=== PATIENT | female | born 1935 | race Caucasian/White ===

== ENCOUNTER 2018-11-04 12:17 | Inpatient (IN) | payer MEDICARE, OTHER ==
[2018-11-04 13:13] LABS: ADD MAN DIFF? NO
[2018-11-04 13:16] LABS: WHITE BLOOD COUNT 4.3 10^3/ul (4.8-10.8)
[2018-11-04 13:16] LABS: BASOPHILS % 0.9 % (0.0-2.0); EOSINOPHILS # 0.1 10^3/ul (0.0-0.5); EOSINOPHILS % 1.4 % (0.0-7.0); HEMATOCRIT 40.6 % (37.0-47.0); LYMPHOCYTES % 24.2 % (15.0-51.0); MEAN CORPUSCULAR HEMOGLOBIN 30.4 pg (29.0-33.0); MEAN CORPUSCULAR VOLUME 94.9 fl (82.0-101.0); MEAN PLATELET VOLUME 10.5 fl (7.4-10.4); MONOCYTE # 0.6 10^3/ul (0.3-0.9); MONOCYTES % 14.2 % (0.0-11.0); NEUTROPHIL # 2.5 10^3/ul (1.6-7.5); NEUTROPHILS % 59.1 % (39.0-77.0); PLATELET COUNT 178 10^3/UL (140-415); RED BLOOD COUNT 4.28 10^6/ul (4.20-5.40); RED CELL DISTRIBUTION WIDTH 13.3 % (11.5-14.5)
[2018-11-04 13:32] LABS: ANION GAP 7 (5-13); BLOOD UREA NITROGEN 8 mg/dl (7-20); CALCIUM 9.1 mg/dl (8.4-10.2); CARBON DIOXIDE 29 mmol/L (21-31); CHLORIDE 105 mmol/L (97-110); CREATININE 0.62 mg/dl (0.44-1.00); GLUCOSE 80 mg/dl (70-220); POTASSIUM 3.7 mmol/L (3.5-5.1); SODIUM 141 mmol/L (135-144)
[2018-11-04 13:41] LABS: PARTIAL THROMBOPLASTIN TIME 48.1 Sec (23.0-35.0)
[2018-11-04 13:44] LABS: B-TYPE NATRIURETIC PEPTIDE 197 PG/ML (0-450); TROPONIN-I < 0.012 ng/ml (0.000-0.120)
[2018-11-04 13:51] LABS: INR 1.09; PROTIME 14.2 Sec (11.9-14.9); PT RATIO 1.1
[2018-11-04] MEDS: ONDANSETRON 4 MG INJ IV (13:52)
[2018-11-04] MEDS: morphine 4 MG/ML VIAL IV (13:52)
[2018-11-04] MEDS: SOD CHLORIDE 0.9% 1,000 ML IV (13:52)
[2018-11-04] MEDS: SOD CHLORIDE 0.9% 100 ML (14:02)
[2018-11-04] MEDS: IOHEXOL 100 ML (14:02)
[2018-11-04] MEDS: ASPIRIN 81 MG TAB PO (16:27)
[2018-11-04] MEDS ORDERED: ONDANSETRON 4 MG INJ IV (16:30)
[2018-11-04] MEDS ORDERED: ACETAMINOPHEN 325 MG TAB PO ×2 (16:30→17:00)
[2018-11-04] MEDS ORDERED: NACL 0.9% 3 ML SYG IV (17:00)
[2018-11-04] MEDS ORDERED: hydrALAzine 20 MG INJ IV (17:00)
[2018-11-04 17:24] LABS: FREE T4 (FREE THYROXINE) 1.24 ng/dl (0.85-1.93)
[2018-11-04 19:44] LABS: CREATINE KINASE 56 IU/L (23-200)
[2018-11-04 19:55] LABS: CK INDEX 2.2; CK-MB 1.21 ng/ml (0.0-2.4); TROPONIN-I < 0.012 ng/ml (0.000-0.120)
[2018-11-04] MEDS: SACCHAROMYCES BOULARDII 250 MG CAP PO (21:36)
[2018-11-04] MEDS: ATORVASTATIN 10 MG TAB PO (21:36)
[2018-11-05] MEDS: HYDROCODONE/APAP (5/325) TAB PO (01:11)
[2018-11-05 01:15] LABS: CREATINE KINASE 56 IU/L (23-200)
[2018-11-05 01:28] LABS: CK INDEX 2.1; CK-MB 1.19 ng/ml (0.0-2.4); TROPONIN-I < 0.012 ng/ml (0.000-0.120)
[2018-11-05 05:43] LABS: ADD MAN DIFF? NO
[2018-11-05 05:49] LABS: WHITE BLOOD COUNT 2.8 10^3/ul (4.8-10.8)
[2018-11-05 05:49] LABS: BASOPHILS % 1.1 % (0.0-2.0); EOSINOPHILS # 0.1 10^3/ul (0.0-0.5); EOSINOPHILS % 3.9 % (0.0-7.0); HEMATOCRIT 38.9 % (37.0-47.0); LYMPHOCYTES # 0.8 10^3/ul (0.8-2.9); LYMPHOCYTES % 27.3 % (15.0-51.0); MEAN CORPUSCULAR HEMOGLOBIN 29.9 pg (29.0-33.0); MEAN CORPUSCULAR HGB CONC 30.8 g/dl (32.0-37.0); MONOCYTE # 0.7 10^3/ul (0.3-0.9); NEUTROPHIL # 1.3 10^3/ul (1.6-7.5); NEUTROPHILS % 44.3 % (39.0-77.0); PLATELET COUNT 166 10^3/UL (140-415); RED BLOOD COUNT 4.01 10^6/ul (4.20-5.40); RED CELL DISTRIBUTION WIDTH 13.5 % (11.5-14.5)
[2018-11-05 06:06] LABS: CHOL/HDL RATIO 4.9 RATIO; CHOLESTEROL 158 mg/dl (100-200); HDL CHOLESTEROL 32 mg/dl (33-92); LDL CHOLESTEROL,CALCULATED 102 mg/dl; MAGNESIUM 2.1 mg/dl (1.7-2.5); TRIGLYCERIDES 120 mg/dl (0-149)
[2018-11-05 06:06] LABS: PHOSPHORUS 4.4 mg/dl (2.5-4.9)
[2018-11-05 06:08] LABS: ANION GAP 4 (5-13); BLOOD UREA NITROGEN 7 mg/dl (7-20); CALCIUM 8.9 mg/dl (8.4-10.2); CARBON DIOXIDE 31 mmol/L (21-31); CHLORIDE 105 mmol/L (97-110); CREATININE 0.67 mg/dl (0.44-1.00); GLUCOSE 78 mg/dl (70-220); POTASSIUM 4.2 mmol/L (3.5-5.1); SODIUM 140 mmol/L (135-144)
[2018-11-05 06:10] LABS: CREATINE KINASE 51 IU/L (23-200)
[2018-11-05 06:20] LABS: CK INDEX 2.7; TROPONIN-I < 0.012 ng/ml (0.000-0.120)
[2018-11-05 09:42] LABS: HEMOGLOBIN A1C 5.1 % (0-5.9)
[2018-11-05] MEDS: DONEPEZIL 5 MG TAB PO (11:18)
[2018-11-05] MEDS: SACCHAROMYCES BOULARDII 250 MG CAP PO ×2 (11:18→20:51)
[2018-11-05] MEDS: ASPIRIN (EC) 81 MG TAB PO (11:18)
[2018-11-05] MEDS: DILTIAZEM (CD) 120 MG CAP PO (11:18)
[2018-11-05] MEDS: ESCITALOPRAM 10 MG TAB PO (11:19)
[2018-11-05] MEDS: LORATADINE 10 MG TAB PO (11:19)
[2018-11-05] MEDS: NEBIVOLOL 5 MG TAB PO (11:19)
[2018-11-05] MEDS: FUROSEMIDE 20 MG TAB PO (11:21)
[2018-11-05] MEDS ORDERED: BARIUM SULF 2% 450 ML BTL (BERRY SMOOTHIE) PO ×2 (12:00)
[2018-11-05] MEDS: BARIUM SULF 2% 450 ML BTL (BERRY SMOOTHIE) PO (15:05)
[2018-11-05] MEDS: ATORVASTATIN 10 MG TAB PO (20:51)
[2018-11-06 05:34] LABS: ADD MAN DIFF? NO
[2018-11-06 05:57] LABS: BASOPHILS % 1.1 % (0.0-2.0); EOSINOPHILS # 0.1 10^3/ul (0.0-0.5); EOSINOPHILS % 4.1 % (0.0-7.0); HEMATOCRIT 39.9 % (37.0-47.0); HEMOGLOBIN 12.2 g/dl (12.0-16.0); LYMPHOCYTES # 0.9 10^3/ul (0.8-2.9); LYMPHOCYTES % 32.7 % (15.0-51.0); MEAN CORPUSCULAR HEMOGLOBIN 29.9 pg (29.0-33.0); MEAN CORPUSCULAR HGB CONC 30.6 g/dl (32.0-37.0); MEAN CORPUSCULAR VOLUME 97.8 fl (82.0-101.0); MEAN PLATELET VOLUME 11.3 fl (7.4-10.4); MONOCYTE # 0.6 10^3/ul (0.3-0.9); MONOCYTES % 20.8 % (0.0-11.0); NEUTROPHIL # 1.1 10^3/ul (1.6-7.5); NEUTROPHILS % 41.3 % (39.0-77.0); PLATELET COUNT 175 10^3/UL (140-415); RED BLOOD COUNT 4.08 10^6/ul (4.20-5.40); RED CELL DISTRIBUTION WIDTH 13.2 % (11.5-14.5)
[2018-11-06 05:57] LABS: WHITE BLOOD COUNT 2.7 10^3/ul (4.8-10.8)
[2018-11-06 06:10] LABS: MAGNESIUM 2.1 mg/dl (1.7-2.5)
[2018-11-06 06:10] LABS: PHOSPHORUS 3.9 mg/dl (2.5-4.9)
[2018-11-06 06:23] LABS: ANION GAP 3 (5-13); BLOOD UREA NITROGEN 6 mg/dl (7-20); CALCIUM 9.1 mg/dl (8.4-10.2); CARBON DIOXIDE 35 mmol/L (21-31); CHLORIDE 104 mmol/L (97-110); CREATININE 0.69 mg/dl (0.44-1.00); GLUCOSE 86 mg/dl (70-220); POTASSIUM 4.7 mmol/L (3.5-5.1); SODIUM 142 mmol/L (135-144)
[2018-11-06] MEDS: ASPIRIN (EC) 81 MG TAB PO (08:45)
[2018-11-06] MEDS: LORATADINE 10 MG TAB PO (08:45)
[2018-11-06] MEDS: ESCITALOPRAM 10 MG TAB PO (08:45)
[2018-11-06] MEDS: DONEPEZIL 5 MG TAB PO (08:45)
[2018-11-06] MEDS: SACCHAROMYCES BOULARDII 250 MG CAP PO ×2 (08:45→20:19)
[2018-11-06] MEDS: NEBIVOLOL 5 MG TAB PO (08:46)
[2018-11-06] MEDS: DILTIAZEM (CD) 120 MG CAP PO (08:47)
[2018-11-06] MEDS: FUROSEMIDE 20 MG TAB PO (08:47)
[2018-11-06] MEDS: ATORVASTATIN 10 MG TAB PO (20:20)
[2018-11-06] MEDS: HEPARIN 5,000 UNIT/1 ML VIAL SC (21:53)
[2018-11-07 05:37] LABS: ADD MAN DIFF? NO
[2018-11-07 05:46] LABS: WHITE BLOOD COUNT 3.9 10^3/ul (4.8-10.8)
[2018-11-07 05:46] LABS: EOSINOPHILS # 0.1 10^3/ul (0.0-0.5); EOSINOPHILS % 2.3 % (0.0-7.0); HEMATOCRIT 40.9 % (37.0-47.0); HEMOGLOBIN 12.7 g/dl (12.0-16.0); LYMPHOCYTES % 25.8 % (15.0-51.0); MEAN CORPUSCULAR HEMOGLOBIN 29.9 pg (29.0-33.0); MEAN CORPUSCULAR HGB CONC 31.1 g/dl (32.0-37.0); MEAN CORPUSCULAR VOLUME 96.2 fl (82.0-101.0); MEAN PLATELET VOLUME 10.6 fl (7.4-10.4); MONOCYTE # 0.5 10^3/ul (0.3-0.9); MONOCYTES % 13.2 % (0.0-11.0); NEUTROPHIL # 2.2 10^3/ul (1.6-7.5); NEUTROPHILS % 57.2 % (39.0-77.0); PLATELET COUNT 186 10^3/UL (140-415); RED BLOOD COUNT 4.25 10^6/ul (4.20-5.40); RED CELL DISTRIBUTION WIDTH 13.3 % (11.5-14.5)
[2018-11-07 06:10] LABS: ALANINE AMINOTRANSFERASE 52 IU/L (13-69); ALBUMIN 3.6 g/dl (3.3-4.9); ALBUMIN/GLOBULIN RATIO 1.16; ALKALINE PHOSPHATASE 105 IU/L (42-121); ANION GAP 4 (5-13); ASPARTATE AMINO TRANSFERASE 31 IU/L (15-46); BILIRUBIN,INDIRECT 0.4 mg/dl (0-1.1); BILIRUBIN,TOTAL 0.4 mg/dl (0.2-1.3); BLOOD UREA NITROGEN 6 mg/dl (7-20); CALCIUM 9.1 mg/dl (8.4-10.2); CARBON DIOXIDE 35 mmol/L (21-31); CHLORIDE 104 mmol/L (97-110); CREATININE 0.71 mg/dl (0.44-1.00); GLUCOSE 94 mg/dl (70-220); SODIUM 143 mmol/L (135-144); TOTAL PROTEIN 6.7 g/dl (6.1-8.1)
[2018-11-07 06:26] LABS: POTASSIUM 5.3 mmol/L (3.5-5.1)
[2018-11-07] MEDS: SACCHAROMYCES BOULARDII 250 MG CAP PO ×2 (08:28→20:39)
[2018-11-07] MEDS: LORATADINE 10 MG TAB PO (08:29)
[2018-11-07] MEDS: DONEPEZIL 5 MG TAB PO (08:29)
[2018-11-07] MEDS: ESCITALOPRAM 10 MG TAB PO (08:29)
[2018-11-07] MEDS: ASPIRIN (EC) 81 MG TAB PO (08:29)
[2018-11-07] MEDS: NEBIVOLOL 5 MG TAB PO (08:30)
[2018-11-07] MEDS: DILTIAZEM (CD) 120 MG CAP PO (08:30)
[2018-11-07] MEDS: FUROSEMIDE 20 MG TAB PO (08:30)
[2018-11-07] MEDS: HEPARIN 5,000 UNIT/1 ML VIAL SC ×2 (08:37→20:46)
[2018-11-07] MEDS: ONDANSETRON 4 MG INJ IV (09:20)
[2018-11-07] MEDS ORDERED: POTASSIUM CHLORIDE (SR) 20 MEQ TAB PO (14:59)
[2018-11-07] MEDS: ATORVASTATIN 10 MG TAB PO (20:39)
[2018-11-08] MEDS: ASPIRIN (EC) 81 MG TAB PO (08:05)
[2018-11-08] MEDS: DONEPEZIL 5 MG TAB PO (08:05)
[2018-11-08] MEDS: NEBIVOLOL 5 MG TAB PO (08:05)
[2018-11-08] MEDS: ESCITALOPRAM 10 MG TAB PO (08:05)
[2018-11-08] MEDS: SACCHAROMYCES BOULARDII 250 MG CAP PO (08:05)
[2018-11-08] MEDS: DILTIAZEM (CD) 120 MG CAP PO (08:06)
[2018-11-08] MEDS: FUROSEMIDE 20 MG TAB PO (08:07)
[2018-11-08] MEDS: LORATADINE 10 MG TAB PO (08:07)
[2018-11-08] MEDS: HEPARIN 5,000 UNIT/1 ML VIAL SC (09:12)
[2018-11-08 16:19] LABS: ANION GAP 6 (5-13); BLOOD UREA NITROGEN 11 mg/dl (7-20); CALCIUM 9.3 mg/dl (8.4-10.2); CARBON DIOXIDE 33 mmol/L (21-31); CHLORIDE 103 mmol/L (97-110); CREATININE 0.81 mg/dl (0.44-1.00); GLUCOSE 109 mg/dl (70-220); SODIUM 142 mmol/L (135-144)
== END 2018-11-08 17:57 | disposition home or self-care (01) | DRG 394 ==
LOC: E/R 12:17 → 6WM 16:03
DX: K52.1 Toxic gastroenteritis and colitis (principal); C34.90 Malignant neoplasm of unspecified part of unspecified bronchus or lung; R07.89 Other chest pain; I10 Essential (primary) hypertension; E66.9 Obesity, unspecified; Z68.36 Body mass index [BMI] 36.0-36.9, adult; E78.5 Hyperlipidemia, unspecified; R51 Headache; Z92.21 Personal history of antineoplastic chemotherapy; Z91.81 History of falling; Z92.3 Personal history of irradiation; Z79.82 Long term (current) use of aspirin; Z85.3 Personal history of malignant neoplasm of breast; Z90.12 Acquired absence of left breast and nipple; T45.1X5A Adverse effect of antineoplastic and immunosuppressive drugs, initial encounter
CPT/HCPCS: 36415; 70450; 71045; 71275; 73510; 74176; 80048; 80053; 80061; 82550; 82553; 82962; 83036; 83735; 83880; 84100; 84439; 84443; 84484; 85025; 85610; 85730; 86674; 87045; 87075; 87177; 87205; 93005; 93306; 96361; 96374; 96375; 99285-25